=== PATIENT | female | born 1980 | race Caucasian/White ===

== ENCOUNTER 2016-12-13 21:39 | Emergency (ER) | payer SELFPAY ==
[2016-12-13 21:50] VITALS: BP 117/75
[2016-12-13] MEDS ORDERED: IV NORMAL SALINE 1,000ML 1,000 ML IV ONE (23:00)
[2016-12-13] MEDS ORDERED: HYDROmorphone PF 1 MG/ML DISP.SYRIN IV ONE (23:00)
[2016-12-13] MEDS ORDERED: ONDANSETRON PF 4 MG/2 ML VIAL. IV ONE (23:00)
[2016-12-13 23:02] LABS: BILIRUBIN,URINE NEG (NEG); CLARITY,URINE HAZY; COLOR,URINE YELLOW; GLUCOSE,URINE NEG (NEG); NITRITE,URINE POS (NEG); UROBILINOGEN,URINE 4 mg/dL (0.2 mg/dL)
[2016-12-13 23:03] LABS: BACTERIA,URINE MANY /HPF (0-FEW); SQUAMOUS EPITHELIAL CELL,UR OCC /LPF
[2016-12-13 23:05] LABS: BARBITURATES NEG (NEG); BENZODIAZEPINES NEG (NEG); CANNABINOIDS POS (NEG); COCAINE NEG (NEG); METHADONE NEG (NEG); OPIATES NEG (NEG); PHENCYCLIDINE NEG (NEG)
[2016-12-13 23:22] LABS: BASO # 0.1 x10^3/uL (0.0-0.2); BASO % 1 % (0-3); EOS % 0 % (0-3); HEMATOCRIT 36.7 % (36.0-47.0); HEMOGLOBIN 12.7 g/dL (12.0-15.5); LYMPH # 1.3 x10^3/uL (1.0-4.8); LYMPH % 12 % (24-48); MEAN CORPUSCULAR HEMOGLOBIN 33 pg (25-35); MEAN CORPUSCULAR HGB CONC 35 g/dL (31-37); MEAN CORPUSCULAR VOLUME 95 fL (79-100); MONO % 9 % (0-9); NEUT # 8.8 x10^3uL (1.8-7.7); NEUT % 78 % (31-73); PLATELET COUNT 189 x10^3/uL (140-400); RED BLOOD COUNT 3.87 x10^6/uL (3.50-5.40); RED CELL DISTRIBUTION WIDTH 12.8 % (11.5-14.5); WHITE BLOOD COUNT 11.2 x10^3/uL (4.0-11.0)
[2016-12-13 23:31] LABS: ALBUMIN 3.2 g/dL (3.4-5.0); ALBUMIN/GLOBULIN RATIO 1.1 (1.0-1.7); CALCIUM 7.8 mg/dL (8.5-10.1); CREATININE 0.6 mg/dL (0.6-1.0); GFR 113.8; POTASSIUM 3.3 mmol/L (3.5-5.1); TOTAL BILIRUBIN 0.3 mg/dL (0.2-1.0); TOTAL PROTEIN 6.1 g/dL (6.4-8.2)
--- NOTE | 2016-12-14 00:12 | RAD ---
EXAM: PREG 1ST TRIMESTER HISTORY: pt came in with butt pain abd pain , found out she was , does not know how far along. COMPARISON: None. TECHNIQUE: Transverse and longitudinal sonography of the pelvis is performed utilizing transabdominal and transvaginal transducers. FINDINGS: Transabdominal imaging demonstrates an anteflexed uterus measuring 12.4 x 9.0 x 8.1 cm. Within the uterus is a gestational sac measuring up to 4.3 cm in greatest dimension. A single fetus is seen within the gestational sac with crown-rump length of 3.1 cm corresponding with an ultrasound gestational age of 10 weeks 0 days. This corresponds with an estimated date of delivery of July 11, 2017. heart rate of 168 bpm documented. A yolk sac is also present measuring 6 mm. Transvaginal imaging is performed, demonstrating visualization of both ovaries. The right ovary measures 3.1 x 1.9 x 1.2 cm, with internal blood flow documented. A probable corpus luteal cyst is seen within the right ovary measuring up to 1.6 cm. A small amount of free fluid is seen about the right ovary. The left ovary is visualized measuring 2.8 x 1.6 x 1.9 cm, with internal blood flow documented. No adnexal masses are seen. Some fluid is seen within the cervical canal. IMPRESSION: 1. Single live intrauterine with ultrasound gestational age of 10 weeks 0 days. heart rate of 168 bpm documented. 2. Both ovaries visualized with blood flow documented. Trace free fluid present, may be physiologic. Electronically signed by: Katlyn Mcgarry MD (12/14/2016 12:09 AM) [facility]
[2016-12-14 01:05] LABS: AMPHETAMINE/METHAMPHETAMINE POS (NEG)
--- NOTE | 2016-12-14 01:38 | PHYS DOC ---
Past History Past Medical History: No Pertinent History Past Surgical History: No Surgical History Alcohol Use: None Drug Use: Marijuana Adult General Chief Complaint Chief Complaint: ABDOMINAL PAIN IN HPI HPI Patient is a 35-year-old female who is 3 para 0 presents here today complaining of suprapubic abdominal pain. Patient reports that her last menstrual period was approximately 6 weeks ago. Patient reports that she is . Patient denies any dysuria frequency urgency. Patient has a vaginal discharge or bleeding. Patient reports that she noticed some discharge from her rectum earlier today. Patient denies any history of hemorrhoids. Patient denies any history of ectopic pregnancies. Patient reports she has had a history of STDs in the past. Patient denies any fevers shakes chills nausea vomiting diarrhea cough cold runny nose. Patient reports she has been tolerating by mouth 's well today. Patient denies any pain with inhalation. Review of systems: Constitutional: Denies fever or chills Eyes: Denies change in visual acuity, redness, or eye pain HENT: Denies nasal congestion or sore throat All other review systems are negative except as documented in the history of present illness portion. Physical exam: Constitutional: Well developed, well nourished, no acute distress, non-toxic appearance. HENT: Normocephalic, atraumatic, bilateral external ears normal, nose normal. Eyes: EOMI, conjunctiva normal, no discharge. Neck: Normal range of motion, no tenderness, supple, no stridor. Cardiovascular:Heart rate regular rhythm Lungs & Thorax: Bilateral breath sounds clear to auscultation no respiratory distress Abdomen soft nontender no rebound or guarding NABS. No Garnett sign, no tenderness to McBurney's point. Patient not present with any signs or symptoms of be consistent with an acute surgical abdomen. Skin: Warm, dry, no erythema, no rash. Back: No tenderness, no CVA tenderness. Extremities: No tenderness, no cyanosis, no clubbing, ROM intact, no edema. Neurologic: Alert and oriented X 3, normal motor function, normal sensory function, no focal deficits noted. Psychologic: Affect normal, judgement normal, mood normal. Pelvic exam reveals no cervical motion tenderness. Small amount of clear discharge from the cervical os. No Masses or tenderness. Os closed. Assessment and plan Ultrasound pelvis: 10 week IUP with heart activity. No evidence of ectopic . This is a 35-year-old female who presents here today complaining of pelvic pain after being . Patient's ER workup is unremarkable. Patient's Rh was positive. Patient's beta hCG with adequate for her dates. Patient's pelvic exam was unremarkable without any evidence of peritonitis/PID. Patient be discharged home. Patient's clinically hemodynamically stable. Patient was instructed to follow-up with her family practice doctor or OB doctor for further evaluation of her pain. Patient was given Dilaudid 1 mg IV initially refused suspicion of an ectopic . This was done in order to get an adequate ultrasound. Given that the workup is negative patient will be instructed to take Tylenol for pain while she is . Current Medications Current Medications Current Medications Medications (Trade) Dose Ordered Sig/Raúl Start Time Stop Time Status Last Admin Dose Admin Hydromorphone HCl (Dilaudid) 0.5 mg 1X ONCE 12/13/16 23:00 12/13/16 23:01 DC 12/13/16 22:56 0.5 MG Ondansetron HCl (Zofran) 4 mg 1X ONCE 12/13/16 23:00 12/13/16 23:01 DC 12/13/16 22:57 4 MG Sodium Chloride 1,000 ml @ 1,000 mls/hr 1X ONCE 12/13/16 23:00 12/13/16 23:59 DC 12/13/16 22:57 1,000 MLS/HR Allergies Allergies Allergies Coded Allergies Type Severity Reaction Last Updated Verified No Known Allergies Allergy Unknown 12/13/16 Yes Current Patient Data Vital Signs Vital Signs Date Time Temp Pulse Resp B/P (MAP) Pulse Ox O2 Delivery O2 Flow Rate FiO2 12/13/16 22:56 20 98 12/13/16 21:50 99.0 108 Room Air Lab Results Laboratory Tests Test 12/13/16 22:15 12/13/16 22:17 12/13/16 22:28 12/13/16 22:45 Urine Opiates Screen Neg (NEG) Urine Methadone Screen Neg (NEG) Urine Barbiturates Neg (NEG) Urine Phencyclidine Screen Neg (NEG) Urine Amphetamine/Methamphetamine Pos (NEG) Urine Benzodiazepines Screen Neg (NEG) Urine Cocaine Screen Neg (NEG) Urine Cannabinoids Screen Pos (NEG) Urine Ethyl Alcohol Neg (NEG) Urine Collection Type Unknown Urine Color Yellow Urine Clarity Hazy Urine pH 6.0 Urine Specific [place] 1.020 Urine Protein Neg (NEG-TRACE) Urine Glucose (UA) Neg mg/dL (NEG) Urine Ketones (Stick) Trace mg/dL (NEG) Urine Blood Mod (NEG) Urine Nitrite Pos (NEG) Urine Bilirubin Neg (NEG) Urine Urobilinogen Dipstick 4 mg/dL (0.2 mg/dL) Urine Leukocyte Esterase Trace (NEG) Urine RBC 6-10 /HPF (0-2) Urine WBC 5-10 /HPF (0-4) Urine Squamous Epithelial Cells Occ /LPF Urine Bacteria Many /HPF (0-FEW) POC Urine HCG, Qualitative hcg positive (Negative) White Blood Count 11.2 x10^3/uL (4.0-11.0) H Red Blood Count 3.87 x10^6/uL (3.50-5.40) Hemoglobin 12.7 g/dL (12.0-15.5) Hematocrit 36.7 % (36.0-47.0) Mean Corpuscular Volume 95 fL (79-100) Mean Corpuscular Hemoglobin 33 pg (25-35) Mean Corpuscular Hemoglobin Concent 35 g/dL (31-37) Red Cell Distribution Width 12.8 % (11.5-14.5) Platelet Count 189 x10^3/uL (140-400) Neutrophils (%) (Auto) 78 % (31-73) H Lymphocytes (%) (Auto) 12 % (24-48) L Monocytes (%) (Auto) 9 % (0-9) Eosinophils (%) (Auto) 0 % (0-3) Basophils (%) (Auto) 1 % (0-3) Neutrophils # (Auto) 8.8 x10^3uL (1.8-7.7) H Lymphocytes # (Auto) 1.3 x10^3/uL (1.0-4.8) Monocytes # (Auto) 1.0 x10^3/uL (0.0-1.1) Eosinophils # (Auto) 0.0 x10^3/uL (0.0-0.7) Basophils # (Auto) 0.1 x10^3/uL (0.0-0.2) Maternal Serum HCG Beta Subunit 40278 mIU/mL (0-6) H Sodium Level 135 mmol/L (136-145) L Potassium Level 3.3 mmol/L (3.5-5.1) L Chloride Level 102 mmol/L (98-107) Carbon Dioxide Level 25 mmol/L (21-32) Anion Gap 8 (6-14) Blood Urea Nitrogen 9 mg/dL (7-20) Creatinine 0.6 mg/dL (0.6-1.0) Estimated GFR (Cockcroft-Gault) 113.8 BUN/Creatinine Ratio 15 (6-20) Glucose Level 98 mg/dL (70-99) Calcium Level 7.8 mg/dL (8.5-10.1) L Total Bilirubin 0.3 mg/dL (0.2-1.0) Aspartate Amino Transferase (AST) 14 U/L (15-37) L Alanine Aminotransferase (ALT) 30 U/L (14-59) Alkaline Phosphatase 57 U/L (46-116) Total Protein 6.1 g/dL (6.4-8.2) L Albumin 3.2 g/dL (3.4-5.0) L Albumin/Globulin Ratio 1.1 (1.0-1.7) Ethyl Alcohol Level < 10 mg/dL (0-10) EKG EKG [] Radiology/Procedures Radiology/Procedures [] Course & Med Decision Making Course & Med Decision Making Pertinent Labs and Imaging studies reviewed. (See chart for details) [] Dragon Disclaimer Dragon Disclaimer This chart was dictated in whole or in part using Voice Recognition software in a busy, high-work load, and often noisy Emergency Department environment. It may contain unintended and wholly unrecognized errors or omissions. Departure Departure: Impression: Primary Impression: Threatened miscarriage in early Additional Impression: Normal IUP (intrauterine ) on ultrasound Disposition: HOME, SELF-CARE Condition: STABLE Referrals: PCPCHEYENNE (PCP) Patient Instructions: Abdominal Pain During , Threatened Miscarriage Additional Instructions: Thank you for allowing us to participate in your care today. Followup with your primary care physician in 3 days if your symptoms do not improve. Call your Primary Doctor tomorrow and inform them of your visit today. If you do not have a primary care provider you can ask for a list of our primary care providers. Return to the emergency department you have any new or concerning findings. This should be evaluated by the primary care physician and any necessary consulting services for continued management within a few days after discharge. Return to emergency room if you have any new or concerning symptoms including but not limited to fever, chills, nausea, vomiting, intractable pain, any new rashes, chest pain, shortness of air, uncontrolled bleeding, difficulty breathing, and/or vision loss. You may have been prescribed medication that can change in your level of thinking and ability to operate machinery. These medications include hydrocodone and Ativan. Also, Benadryl has been known to do this as well. Be sure to check with your pharmacist and ask if the medications you've prescribed can affect your level of consciousness. I recommend not operating heavy machinery or driving while on medication such as these. Problem Qualifiers BORIS SETH MD Dec 14, 2016 01:38
[2016-12-14] MEDS ORDERED: HYDR-971 PO (12:34)
[2016-12-14] MEDS ORDERED: NIFEDIPINE (12:34)
[2016-12-14] MEDS ORDERED: HYDR25SU18 RC (12:34)
[2016-12-15 21:09] LABS: CHLAMYDIA PROBE Negative (Negative)
== END 2016-12-14 01:45 | disposition home or self-care (01) ==
LOC: ER 21:39
DX: O20.0 Threatened abortion (principal); Z3A.10 10 weeks gestation of pregnancy
CPT/HCPCS: 36415; 76801; 80053; 80307; 81001; 81025; 84702; 85025; 86900; 86901; 87086; 87491; 87591; 96361; 96374; 96375; 99285; G0480; J1170; J2405; Q0111; G0479; J7030

== ENCOUNTER 2016-12-14 10:46 | Emergency (ER) | payer SELFPAY ==
[~2016-12-14] VITALS: Ht 167.6 cm; Wt 48.5 kg
--- NOTE | 2016-12-14 11:38 | PHYS DOC ---
Past History Past Medical History: No Pertinent History Past Surgical History: No Surgical History Alcohol Use: None Drug Use: Marijuana Adult General Chief Complaint Chief Complaint: RECTAL BLEED HPI HPI Patient is a 35-year-old female who is 10 weeks complaining of rectal pain and rectal bleeding. The patient was seen here last night with similar complaints and was evaluated with pelvic exam and labs. She comes back today complaining of continued rectal pain, continued rectal bleeding. It sounds like she does not have rectal bleeding with a stool for large quantities of rectal bleeding that she is having a little discharge from her rectum. Patient tells me that she had anal intercourse on Wednesday,12/09, it was painful and they stopped at that point. She has done this before without pain. The next day it did hurt some but since then it's been hurting more and now is very painful. She 's never had pain like this before. She has not had a bowel movement since. She' s had chills but no fever. She's had no vomiting, also no appetite, thinks that is because it hurts so bad. She has not been able to sleep due to pain. She took some Aleve without much relief. Patient does not have a OB doctor yet. Review of Systems Review of Systems Constitutional: Denies fever but has had chills GI: Denies abdominal pain, otherwise as in history of present illness : She is 10 weeks Current Medications Current Medications Current Medications Medications (Trade) Dose Ordered Sig/Raúl Start Time Stop Time Status Last Admin Dose Admin Acetaminophen/ Hydrocodone Bitart (Lortab 7.5/325) 1 tab 1X ONCE 12/14/16 11:30 12/14/16 11:31 UNV Hydrocortisone Acetate (Anucort-Hc) 25 mg 1X ONCE 12/14/16 11:30 12/14/16 11:31 UNV Allergies Allergies Allergies Coded Allergies Type Severity Reaction Last Updated Verified No Known Allergies Allergy Unknown 12/13/16 Yes Physical Exam Physical Exam Constitutional: Well developed, well nourished, tearful, appears to be in pain, alert and appropriate. HENT: Normocephalic, atraumatic, bilateral external ears normal, nose normal. [ ] Eyes: conjunctiva normal, no discharge. [] Neck: Normal range of motion, no stridor. [] Abdomen: Bowel sounds normal, soft, nondistended, no tenderness, no masses, no pulsatile masses. [] Rectal: No evidence of trauma, no visible hemorrhoids, no visible rectal bleeding on exam. Anoscopic exam performed with stretch machine operator and assistance of ED RN. Lubricated anoscope was placed. I was not able to see any evidence of fissure, or other abnormality. There was some redness of the mucosa, I could not tell whether it was an abrasion or a streak of blood. Skin: Warm, dry, no erythema, no rash. [] Extremities: No tenderness, no cyanosis, no clubbing, ROM intact, no edema. [] Neurologic: Alert and oriented X 3, normal motor function, normal sensory function, no focal deficits noted. [] Current Patient Data Vital Signs Vital Signs Date Time Temp Pulse Resp B/P (MAP) Pulse Ox O2 Delivery O2 Flow Rate FiO2 12/14/16 10:46 98.6 96 20 96 Room Air EKG EKG [] Radiology/Procedures Radiology/Procedures [] Course & Med Decision Making Course & Med Decision Making Pertinent Labs and Imaging studies reviewed. (See chart for details) 35-year-old female who is 10 weeks presents with severe rectal pain and some bleeding and discharge of blood from the rectum, worsening since a trauma 5 days ago when the patient had anal sex. She states she was penetrated only by a penis and was not injured by any object. Exam today does not show any definite evidence of injury. I discussed the case with Dr. Monsivais, general surgery at [facility]. We agreed that the patient may have a rectal fissure. She recommended treatment of the rectal fissure with nifedipine ointment. We also discussed use of Anusol HC and stool softeners/laxatives. ED nursing staff made some phone calls and we were not able to locate a local store with the patient could purchase nifedipine ointment. I elected, rather than not treating the patient, to let her try using nifedipine capsules and squirted up the liquid to apply topically. Also we will treat the patient with Anusol HC suppositories, laxatives and pain relievers. She can make a follow-up with Dr. Monsivais who will see her in the office. [] Dragon Disclaimer Dragon Disclaimer This chart was dictated in whole or in part using Voice Recognition software in a busy, high-work load, and often noisy Emergency Department environment. It may contain unintended and wholly unrecognized errors or omissions. Departure Departure: Impression: Primary Impression: Rectal pain Additional Impressions: Rectal fissure Rectal bleeding Disposition: 01 HOME, SELF-CARE Condition: IMPROVED Referrals: PCP,CHEYENNE (PCP) PAZ MONSIVAIS MD Additional Instructions: We will treat your pain like there might be a tear in the rectum called a rectal fissure. This is a very painful condition. Nifedipine is used to help relax the muscle. Puncture the capsule with a pin and squirt the liquid onto your finger, rub around and just inside of the rectum. Do this twice a day. This should help with the pain. Anusol HC suppositories have a local anesthetic (numbing medicine) and anti- inflammatory. Insert one up to 4 times a day as needed. We want to keep your stool soft and loose because if you have a large hard stool (poop) it will be painful. Buy [id number] milk of magnesia and take one dose every 6 hours until better. If that is too much and you are having diarrhea, decreased to 1 dose twice a day. For pain, hydrocodone, this is an opiate, do not take while driving. Unfortunately, it also causes constipation (hard stools) so try to take as little as possible. Call today to make a follow-up appointment with Dr. Monsivais, the surgeon I spoke with at [place]. Scripts Hydrocortisone Acetate (ANUSOL-HC) 25 Mg Supp.rect 1 SUPP RC BID, #14 SUPP Prov: CIRO PERLA MD 12/14/16 [nifedipine capsule] 10 mg CAP No Conflict Check 1 BID for rectal fissure, #20 Apply liquid to rectal area Prov: CIRO PERLA MD 12/14/16 Hydrocodone Bit/Acetaminophen (NORCO 5-325 TABLET) 1 Each Tablet 1-2 TAB PO PRN Q6HRS Y for PAIN, #14 TAB 0 Refills Prov: CIRO PERLA MD 12/14/16 Problem Qualifiers CIRO PERLA MD Dec 14, 2016 11:38
[2016-12-14] MEDS ORDERED: HYDROcodone/APAP 7.5/325MG 1 TAB TABLET PO ONE (12:00)
[2016-12-14] MEDS ORDERED: HYDROCORTISONE ACETATE 25 MG SUPP.RECT PR ONE (12:00)
[2016-12-14 12:15] VITALS: BP 98/46
[2016-12-14] MEDS ORDERED: NIFEDIPINE (12:34)
[2016-12-14] MEDS ORDERED: HYDR-971 PO (12:34)
[2016-12-14] MEDS ORDERED: HYDR25SU18 RC (12:34)
== END 2016-12-14 12:41 | disposition home or self-care (01) ==
LOC: ER 10:46
DX: O46.8X1 Other antepartum hemorrhage, first trimester (principal); K62.5 Hemorrhage of anus and rectum; K60.2 Anal fissure, unspecified; Z3A.10 10 weeks gestation of pregnancy
CPT/HCPCS: 99283